=== PATIENT | female | born 1985 | race American Indian/Alaskan Native ===

== ENCOUNTER 2018-02-18 20:23 | Inpatient (IN) | payer OTHER ==
[2018-02-18] MEDS: Lactated Ringer's 1,000 ML IV SCH
[2018-02-18 20:53] VITALS: BMI 31.1
[2018-02-18 20:55] LABS: BASO # 0.2 K/uL (0.0-0.2); BASO % 1.5 % (0.0-2.0); EOS # 0.3 K/uL (0.0-0.7); HEMOGLOBIN 11.2 g/dL (12.0-16.0); LYMPH # 2.4 K/uL (1.0-4.3); LYMPH % 23.1 % (20.0-40.0); MEAN CORPUSCULAR HEMOGLOBIN 26.8 pg (27.0-31.0); MEAN CORPUSCULAR HGB CONC 33.4 g/dL (33.0-37.0); MEAN PLATELET VOLUME 9.9 fl (7.2-11.7); MONO # 0.5 K/uL (0.0-0.8); MONO % 5.2 % (0.0-10.0); NEUT # 6.9 K/uL (1.8-7.0); NEUT % 67.2 % (50.0-75.0); RBC 4.17 Mil/uL (3.80-5.20); RED CELL DISTRIBUTION WIDTH 14.5 % (11.5-14.5); WHITE BLOOD COUNT 10.3 K/uL (4.8-10.8)
[2018-02-18 21:06] VITALS: O2SAT 100
[2018-02-18] MEDS ORDERED: Nalbuphine HCL 10 mg/ml Ampule IVP PRN (22:03)
--- NOTE | 2018-02-18 22:54 | OBHP ---
Datetime: 02/18/2018 21:42 IP Adm Impression: Postterm, intrauterine IP Admit Plan: Admit to unit Admit Comment, IP Provider: 32 y/o F presenting for induction. Patient reports hx of placenta p revia during this , which she states has resolved. movement present within the past 5 minutes. Fetus was 6lbs 10 oz at 36 weeks. Patient denied any vaginal bleeding, contractions or loss of fluid. VITOR: 02/13/2018 First u/s: 08/09/2017 LMP: 05/09/17 PNP: Dr. Miguel RESENDEZ hx: Live , 12/26/2005, F, [facility]SD Surgical termination- 2006 Live , 01/17/2008, F, Surgical termination- Live , 03/14/2009, M, Surgical termination- 2011 PMHX: Right benign breast mass - last us in 08/05 for f/u us SHX: x-smoker (last cigarette >5 yrs ago) No EtOH; denies illicit drug use Surg hx: scheduled abortions Allergies: None Meds: None ROS: Patient denied dizziness, headache, blurred vision, C/P, dyspnea A/P 32 y/o F presenting for induction. Cephalic presentation, racing is reactive. 1. VZ vaccine and rubella post delivery. Results for both were equivocal. 2. Cervidil placed at about 10pm. 3. Nubain as needed for pain. Will continue to follow for cervical ripening and dilation. Pelvic Type - PN: Adequate Extremities - PN: Normal Abdomen - PN: Normal Back - PN: Normal Lungs - PN: Normal Heart - PN: Normal Neurologic - PN: Normal HEENT - PN: Normal General - PN: Normal Presentation-Admit: Vertex FHR - Baseline A Provider: 140's Membranes, Provider: Intact Contraction Comments Provider: occastional- not aprreciated by pt Comments, ACOG Physical Exam: General: Patient appears well, in no apparent distress, No CVA tendern ess Gestation - Est Wks by US: 40 wks _ 5 days Pool Provider: Negative EGA AdmitDate IP: 40.5 Vital Signs Provider: Reviewed; Within Normal Limits IP Indication for Induction: Postterm IP Chief Complaint: Scheduled induction of labor NICHD Variability Prov Fetus A: Moderate 6-25bpm NICHD Accel Fetus A IP Provider: 15X15 Dilatation, Provider: 1 Effacement, Provider: 0 Station, Provider: -3 Genitourinary Exam: Normal
--- NOTE | 2018-02-18 23:10 | OBADHP ---
Datetime: 02/18/2018 21:42 Admit Comment, IP Provider: 32 y/o F presenting for induction. Patient reports hx of placenta p revia during this , which she states has resolved. movement present within the past 5 minutes. Fetus was 6lbs 10 oz at 36 weeks. Patient denied any vaginal bleeding, contractions or loss of fluid. VITOR: 02/13/2018 First u/s: 08/09/2017 LMP: 05/09/17 PNP: Dr. Miguel RESENDEZ hx: Live , 12/26/2005, F, [facility]SD Surgical termination- 2006 Live , 01/17/2008, F, Surgical termination- Live , 03/14/2009, M, Surgical termination- 2011 PMHX: Right benign breast mass - last us in 08/05 for f/u us SHX: x-smoker (last cigarette >5 yrs ago) No EtOH; denies illicit drug use Surg hx: scheduled abortions Allergies: None Meds: None ROS: Patient denied dizziness, headache, blurred vision, C/P, dyspnea A/P 32 y/o F presenting for induction. Cephalic presentation, racing is reactive. 1. VZ vaccine and rubella post delivery. Results for both were equivocal. 2. Cervidil placed at about 10pm. 3. Nubain as needed for pain. Will continue to follow for cervical ripening and dilation. Case discussed with Dr. Ly. Shell Pepe, PGY-1 Pelvic Type - PN: Adequate Extremities - PN: Normal Abdomen - PN: Normal Back - PN: Normal Lungs - PN: Normal Heart - PN: Normal Neurologic - PN: Normal HEENT - PN: Normal General - PN: Normal Presentation-Admit: Vertex FHR - Baseline A Provider: 140's Membranes, Provider: Intact Contraction Comments Provider: occastional- not aprreciated by pt Comments, ACOG Physical Exam: General: Patient appears well, in no apparent distress, No CVA tendern ess Gestation - Est Wks by US: 40 wks _ 5 days Pool Provider: Negative Vital Signs Provider: Reviewed; Within Normal Limits IP Chief Complaint: Scheduled induction of labor NICHD Variability Prov Fetus A: Moderate 6-25bpm NICHD Accel Fetus A IP Provider: 15X15 Dilatation, Provider: 1 Effacement, Provider: 0 Station, Provider: -3 Genitourinary Exam: Normal EGA AdmitDate IP: 40.5 IP Adm Impression: Postterm, intrauterine IP Admit Plan: Admit to unit (Annotations: Data stored by CPN on behalf of user)
[2018-02-19] MEDS ORDERED: Oxytocin 30 units/LR 500ML 30 U/500 ML BAG IV ONE (07:45)
--- NOTE | 2018-02-19 10:33 | OBPN ---
Datetime: 02/19/2018 10:29 IP Progress Impression: Reassuring heart rate IP Informed Consent Obtain: Vaginal Delivery IP Progress Plan: Continue present management; Cervical Ripening; Anticipate Vaginal Delivery Pool Provider: Negative Membranes, Provider: Intact FHR - Baseline A Provider: 135 Presentation-Admit: Vertex IP Progress Note Comment: OB Hospitalist on-call. Cervidl removed ...no cerivcal change...disucssed with patinet. will start Cytotec po/she agreed Vital Signs Provider: Reviewed; Within Normal Limits NICHD Accel Fetus A IP Provider: 15X15 FHR Category Provider Fetus A: Category I NICHD Variability Prov Fetus A: Moderate 6-25bpm Dilatation, Provider: 1 Effacement, Provider: 0 Station, Provider: high NICHD Decel Fetus A IP Provider: None Datetime: 02/18/2018 21:42 Contraction Comments Provider: occastional- not aprreciated by pt Gestation - Est Wks by US: 40 wks _ 5 days
[2018-02-19] MEDS: Lactated Ringer's 1,000 ML IV SCH ×2 (14:00→19:12)
[2018-02-19] MEDS ORDERED: Fentanyl/Bupivacaine HCl 250 ML EPI ONE (16:49)
--- NOTE | 2018-02-19 18:57 | OBPN ---
Datetime: 02/19/2018 18:50 IP Progress Impression Other: Latent phase of labor IP Progress Impression: Normal progression of labor IP Procedures: Artificial ROM; Intrauterine Pressure Catheter; Amnio Infusion IP Progress Plan: Anticipate Vaginal Delivery Pool Provider: Positive Membranes, Provider: Ruptured Amniotic Fluid Color, Provider: Clear Contraction Comments Provider: 1-2m FHR - Baseline A Provider: 135 IP Progress Note Comment: Earlier she was 1-2cm and had painful CTX. She was given epidural by Dr Ayla andrew and felt much better. At 5:40pm she was noted to have repetitive decels which recovered. SVE 3cm latent phase A: Latent phase of labor PLAN: Pitocin was at 1miu/h when checked...AROM clear fluid and decel noted. Pitocin was stopped. IUPC placed and Amnioinfusion started...observe FH tracing...Discussion with Bonnie about condition and procedures. Her questions answered NICHD Accel Fetus A IP Provider: 15X15 FHR Category Provider Fetus A: Category II NICHD Variability Prov Fetus A: Moderate 6-25bpm Dilatation, Provider: 3 Effacement, Provider: 50 Station, Provider: -2 NICHD Decel Fetus A IP Provider: Variable Datetime: 02/19/2018 13:30 IP Informed Consent Obtain: Vaginal Delivery
[2018-02-19] MEDS ORDERED: Sodium Chloride 0.9% 1,000 ML IV SCH (19:00)
[2018-02-19] MEDS ORDERED: Lidocaine 2% PF (10 ml) Amp ONE (20:15)
[2018-02-19] MEDS ORDERED: Lidocaine 1% Inj (20ml) ONE (20:31)
[2018-02-19] MEDS ORDERED: Benzocaine/Menthol SPRAY TOP PRN (21:21)
[2018-02-19] MEDS ORDERED: Oxycodone/Acetaminophen 5/325 mg Tab PO PRN (21:21)
[2018-02-20 06:37] LABS: HEMOGLOBIN 10.4 g/dL (12.0-16.0); MEAN CELL VOLUME 79.5 fl (81.0-99.0); MEAN CORPUSCULAR HEMOGLOBIN 26.2 pg (27.0-31.0); RBC 3.98 Mil/uL (3.80-5.20); RED CELL DISTRIBUTION WIDTH 14.4 % (11.5-14.5); WHITE BLOOD COUNT 16.2 K/uL (4.8-10.8)
--- NOTE | 2018-02-20 07:51 | OBDS ---
DELIVERY PERSONNEL Delivery Doctor: Deo Rivera DO Latent Fingerprint Examiner: Marysol Lugo RN Anesthesiologist: Dr. Lazo Resident: Dr. Pepe MATERNAL INFORMATION Delivery Anesthesia: Epidural Medications in Delivery: Oxytocin Estimated Blood Loss (ml): 200 Placenta Cultured: No Maternal Complications: None Provider Comments: Over intact perineum, of live female . Infant was crying spontaneousl y. Cord was clamped and cut by FOB. Infant was placed on mother's chest for skin to skin. Placenta deliveed intact spontaneously. EBL 200cc She remained stable LABOR SUMMARY EDC: 02/13/2018 00:00 No. Babies in Womb: 1 Attempted: No Labor Anesthesia: Epidural LABOR INFORMATION Reason for Induction: Postterm Complete Dilatation: 02/19/2018 20:30 Cervical Ripening Agents: Cervidil Other Ripening Agents: Tab Cytotec 50mcg given PO Oxytocin: N/A Group B Beta Strep: Negative Antibiotics # of Doses: n/a Antibiotics Time of Last Dose: n/a Steroids Given: None Reason Steroids Not Administered: Not Applicable MEMBRANES Membranes Rupture Method: Artificial Rupture of Membranes: 02/19/2018 18:41 Length of Rupture (hrs): 2.43 Amniotic Fluid Color: Clear Amniotic Fluid Amount: Large Amniotic Fluid Odor: Normal STAGES OF LABOR Stage 2 hrs: 0 Stage 2 min: 37 Stage 3 hrs: 0 Stage 3 min: 10 VAGINAL DELIVERY Episiotomy: None Laceration Extension: N/A Laceration Type: None Laceration Repair: No Initial Vag Sponge Count: 5 Final Vag Sponge Count: 5 Initial Vag Sharps Count: 1 Final Vag Sharps Count: 1 Sponge Count Correct: Yes Sharps Count Correct: Yes Count Comment: 5 lap pads one syringe BABY A INFORMATION Delivery Date/Time: 02/19/2018 21:07 Method of Delivery: Vaginal Born in Route : No : N/A Forceps: N/A Vacuum Extraction: N/A Shoulder Dystocia : No SHOULDER DYSTOCIA BABY A Infant Delivery Date/Time: 02/19/2018 21:07 PRESENTATION/POSITION BABY A Presentation: Cephalic Cephalic Presentation: Vertex PLACENTA INFORMATION BABY A Placenta Delivery Time : 02/19/2018 21:17 Placenta Method of Delivery: Spontaneous Placenta Status: Delivered SCORES BABY A Heart Rate 1 min: >100 bpm Resp Effort 1 min: Good Cry Reflex Irritability 1 min: Cough or Sneeze or Pulls Away Muscle Tone 1 min: Active Motion Color 1 min: Body Babcock, Extremities Blue Resuscitation Effort 1 min: N/A SCORE 1 MIN: 9 Heart Rate 5 min: >100 bpm Resp Effort 5 min: Good Cry Reflex Irritability 5 min: Cough or Sneeze or Pulls Away Muscle Tone 5 min: Active Motion Color 5 min: Body Babcock, Extremities Blue Resuscitation Effort 5 min: N/A SCORE 5 MIN: 9 INFANT INFORMATION BABY A Gestational Age at Delivery: 40+ Gestational Status: Term Outcome : Liveborn Condition : Stable Infant Sex: Female IDENTIFICATION/MEDS BABY A ID Band Number: [id number] ID Band Location: Left Leg; Left Arm WEIGHT/LENGTH BABY A Birthweight (gms): 3515 Weight (lb): 7 Infant Weight (oz): 12 CORD INFORMATION BABY A No. Cord Vessels: 3 Nuchal Cord : N/A Infant Suction: None
--- NOTE | 2018-02-20 08:47 | OBPPN ---
Datetime: 02/20/2018 08:43 PP Pain Prov: Within normal limits PP Nausea Prov: Denies PP Flatus Prov: Yes PP Breasts Prov: Not Done PP Heart Prov: Normal PP Lungs Prov: Normal PP Abdomen/Uterus Prov: Normal PP Lochia Prov: Not Done PP Vulva/Perineum Prov: Not Done PP CVA Tenderness Prov: Normal PP Extremities Prov: Normal PP Impression Prov: Normal progression PP Plan Prov: Continue present management PP Progress Note Prov: doing well uterus firm PPD 1 oobtc, regular diet motrin as needed Vital Signs Provider PP: Reviewed Datetime: 02/19/2018 22:58 PP BM Prov: No
[2018-02-21] MEDS ORDERED: Measles, Mumps, and Rubella 0.5 ML VIAL SC ONE (07:18)
--- NOTE | 2018-02-21 10:40 | OBPPN ---
Datetime: 02/21/2018 10:36 PP Pain Prov: Within normal limits PP Nausea Prov: Denies PP Flatus Prov: Yes PP Breasts Prov: Normal PP Heart Prov: Normal PP Lungs Prov: Normal PP Abdomen/Uterus Prov: Normal PP Lochia Prov: Normal PP Vulva/Perineum Prov: Normal PP CVA Tenderness Prov: Normal PP Extremities Prov: Normal PP Comments Phys Exam Prov: Fundus firm under umbilicus PP Impression Prov: Normal progression PP Plan Prov: Continue present management PP Progress Note Prov: Patient denies CP, no SOb, no N/V, tolerating PO diet, ambulating/voiding wel l, mild lochia, abdominal pain tolerable with meds A/P PPD #2 1. Discharge pt home 2. discharge instructions reviewed IP PP Procedures: None Vital Signs Provider PP: Reviewed; Within Normal Limits
--- NOTE | 2018-02-21 10:40 | OBDCSUM ---
Datetime: 02/21/2018 10:38 Discharged to, Provider: Home Follow up at, Provider: OB Disch Instr Activity: Normal activity Disch Instr Diet: Regular Discharge Instructions, Provider: Routine instructions given Discharge Diagnosis, Provider: Term Delivered Discharge Time: 02/21/2018 10:38 Follow up in weeks, Provider: 6 wks Disch Referrals: None Contraception discussed, Prov: Yes
[2018-02-21 23:11] VITALS: BP 119/67; PULSE 57; RESP 20; TEMP 98
== END 2018-02-21 17:30 | disposition home or self-care (01) | DRG 373 ==
LOC: H.L&D 20:38 → UNDOADMIN 20:38 → H.L&D 20:39 → H.OB/GYN 02-20
PROVIDERS: ADMIT Obstetrics & Gynecology; ATTEND Obstetrics & Gynecology
PROC: 10E0XZZ Delivery of Products of Conception, External Approach (ICD-10-PCS; principal; 2018-02-18)
PROC: 4A1HXCZ Monitoring of Products of Conception, Cardiac Rate, External Approach (ICD-10-PCS; 2018-02-18)
DX: O76 Abnormality in fetal heart rate and rhythm complicating labor and delivery (principal); Z37.0 Single live birth; Z3A.40 40 weeks gestation of pregnancy; Z87.891 Personal history of nicotine dependence